=== PATIENT | female | born 1945 | race Caucasian/White ===

== ENCOUNTER 2017-12-25 13:24 | Day surgery (SDC) | payer OTHER, SELFPAY ==
[2017-12-25 13:46] VITALS: BP 145/72; PULSE 71; TEMP 36.1; O2SAT 98; BMI 25.8
[2017-12-25 14:18] VITALS: BMI 25.8
[2017-12-25] MEDS: PROPARACAINE 0.5% OPHTH SOL 2 DROPS EYE-OP (14:20)
[2017-12-25] MEDS: CATARACT EYE COMPOUND (10 DROPS/SYRINGE) 3 DROPS EYE-OP (14:30)
--- NOTE | 2017-12-25 15:12 | PM.PREOP ---
Pre-operative Note Interval Note Pre-op Check: History & Physical Reviewed by Physician
--- NOTE | 2017-12-25 15:26 | SUR.OPER ---
Supine on eye stretcher, head on extension cradle secured with tape. Arms tucked at sides with blanket. Pillow under knees.
[2017-12-25] MEDS: CHONDROIDTIN/SOD HYALURONATE 1.05 ML SYRINGE INTRAOCULA (15:33)
[2017-12-25] MEDS: TRIAMCINOLONE 50 MG/5 ML VIAL INJ (15:34)
[2017-12-25] MEDS: MOXIFLOXACIN OPHTH DROPS 3 ML BOTTLE 2 DROPS INJ (15:34)
[2017-12-25] MEDS: PHENYLEPHRINE/LIDOCAINE 3ML VIAL (OR) EYE-OP (15:34)
[2017-12-25] MEDS: LIDOCAINE JELLY 2% 5 ML 1 APPLIC TOP (15:34)
[2017-12-25] MEDS: BALANCED SALT IRRIG SOLN NO.2 500 ML, EPINEPHrine 1 MG IRR (15:35)
[2017-12-25] MEDS: TETRACAINE 0.5% OPHTH DROPS 15 ML 2 DROPS EYE-LEFT (15:35)
--- NOTE | 2017-12-25 15:40 | P.OP_ITS ---
Operative Date/Time/Diagnoses - Pre-op diagnosis: Cataract Left eye Post-op diagnosis: same Procedure & Clinicians Surgeon: Nhan Massey Anesthesia Type: MAC +/- and Sedation Operative Notes Procedure in detail: Patient brought to the operating suite. Tetracaine drops placed in the left eye. Patient was prepped and draped in sterile manner. Wire lid speculum was placed in the eye. Betadine drops were placed on the eye. This was irrigated. Lidocaine jelly was placed on the eye. A paracentesis port was created with a side-port blade. 0.1 mL 1% preservative free lidocaine was injected into the anterior chamber. The anterior chamber was deepened with viscoelastic. 2.6 mm keratome was used to create a temporal clear corneal incision. Cystotome and Utrata forceps were used to create continuous tear capsulorrhexis. Balanced salt solution was used to hydro dissect the nucleus. The phacoemulsification handpiece was inserted and the nucleus was removed using the stop and chop technique. The irrigation aspiration handpiece was inserted and the remaining cortex was removed. Anterior chamber was deepened with viscoelastic. An Summers ZCB00 intraocular lens with a power of 19.0 was injected into the capsular bag. Irrigation aspiration handpiece was inserted and the remaining viscoelastic was removed. Incision was hydrated with balanced salt solution and found to be leak free with pressure with Weck- Lulu sponges. 0.1 mL Vigamox injected anterior chamber. 0.3 mL Kenalog 10 mg was injected subconjunctivally. Lid speculum was removed. The patient left the operating room in excellent condition. Complications: none Condition: stable Disposition: same day surgery
[2017-12-25 15:49] VITALS: BP 123/71; PULSE 61; RESP 16; TEMP 36.5; O2SAT 100
== END 2017-12-25 15:57 | disposition home or self-care (01) ==
PROVIDERS: Visit Provider Ophthalmology
DX: H25.12 Age-related nuclear cataract, left eye (principal)
CPT/HCPCS: J0171; J2250; J3010; J3301

== ENCOUNTER 2018-01-08 13:16 | Day surgery (SDC) | payer OTHER, SELFPAY ==
[2018-01-08 13:54] VITALS: BP 123/74; PULSE 63; RESP 15; TEMP 36.4; O2SAT 100
[2018-01-08 14:03] VITALS: BMI 25.7
[2018-01-08] MEDS: PROPARACAINE 0.5% OPHTH SOL 2 DROPS EYE-OP (14:08)
[2018-01-08] MEDS: CATARACT EYE COMPOUND (10 DROPS/SYRINGE) 3 DROPS EYE-OP (14:08)
--- NOTE | 2018-01-08 14:55 | PM.PREOP ---
Pre-operative Note Interval Note Pre-op Check: History & Physical Reviewed by Physician
--- NOTE | 2018-01-08 14:56 | P.OP_ITS ---
Operative Date/Time/Diagnoses - Pre-op diagnosis: Cataract Right eye Post-op diagnosis: same Procedure & Clinicians Procedure: Cataract Surgery Same procedure as scheduled: Yes Surgeon: Nhan Massey Anesthesia Type: MAC +/- and Sedation Operative Notes Procedure in detail: Patient brought to the operating suite. Tetracaine drops placed in the right eye. Patient was prepped and draped in sterile manner. Wire lid speculum was placed in the eye. Betadine drops were placed on the eye. This was irrigated. Lidocaine jelly was placed on the eye. A paracentesis port was created with a side-port blade. 0.1 mL 1% preservative free lidocaine was injected into the anterior chamber. The anterior chamber was deepened with viscoelastic. 2.6 mm keratome was used to create a temporal clear corneal incision. Cystotome and Utrata forceps were used to create continuous tear capsulorrhexis. Balanced salt solution was used to hydro dissect the nucleus. The phacoemulsification handpiece was inserted and the nucleus was removed using the stop and chop technique. The irrigation aspiration handpiece was inserted and the remaining cortex was removed. Anterior chamber was deepened with viscoelastic. An Summers ZCB00 intraocular lens with a power of 19.5 was injected into the capsular bag. Irrigation aspiration handpiece was inserted and the remaining viscoelastic was removed. Incision was hydrated with balanced salt solution and found to be leak free with pressure with Weck- Lulu sponges. 0.1 mL Vigamox injected anterior chamber. 0.3 mL Kenalog 10 mg was injected subconjunctivally. Lid speculum was removed. The patient left the operating room in excellent condition. Complications: none Condition: stable Disposition: same day surgery
[2018-01-08] MEDS: TRIAMCINOLONE 50 MG/5 ML VIAL INJ (15:10)
[2018-01-08] MEDS: MOXIFLOXACIN OPHTH DROPS 3 ML BOTTLE 2 DROPS INJ (15:10)
[2018-01-08] MEDS: CHONDROIDTIN/SOD HYALURONATE 1.05 ML SYRINGE INTRAOCULA (15:10)
[2018-01-08] MEDS: BALANCED SALT IRRIG SOLN NO.2 500 ML, EPINEPHrine 1 MG IRR (15:11)
[2018-01-08] MEDS: TETRACAINE 0.5% OPHTH DROPS 15 ML 2 DROPS EYE-RIGHT (15:11)
[2018-01-08] MEDS: PHENYLEPHRINE/LIDOCAINE 3ML VIAL (OR) EYE-OP (15:12)
[2018-01-08] MEDS: LIDOCAINE JELLY 2% 5 ML 1 APPLIC TOP (15:13)
[2018-01-08 15:30] VITALS: BP 118/68; PULSE 62; RESP 16; TEMP 36.6; O2SAT 99
== END 2018-01-08 15:45 | disposition home or self-care (01) ==
PROVIDERS: Visit Provider Ophthalmology
DX: H25.11 Age-related nuclear cataract, right eye (principal)
CPT/HCPCS: J0171; J2250; J3010; J3301

== ENCOUNTER → 2018-12-12 11:40 | Outpatient (CLI) | payer OTHER, SELFPAY ==
--- NOTE | 2018-12-12 | DI.US.S_ITS ---
PROCEDURE: US EXTREMITY NONVASC UPPER LT INDICATIONS: LOCALIZED SWELLING, MASS AND LUMP, TRUNK TECHNIQUE: Real-time scanning was performed of the 2 areas of current clinical concern left flank, with image documentation. COMPARISON: None. FINDINGS: What appeared to be lipomas are present at the left abdomen area of current clinical concern, with the more laterally measuring 1.6 x 3.0 x 5.4 cm and the more medial measuring 2.4 x 2.6 x 4.5 cm. IMPRESSION: Probable lipomas as cause of the palpable abnormalities measuring up to 5.4 cm and 4.5 cm respectively on the left. These areas could be more accurately assessed if clinically desired by MR scanning with contrast but assuming they are chronic and have a palpable physical exam finding of lipoma continued physical exam followup should suffice. Dictated by: Alphonso Beebe M.D. on 12/12/2018 at 13:08 Approved by: Alphonso Beebe M.D. on 12/12/2018 at 13:10
== END ==
PROVIDERS: PCP Family Medicine; Visit Provider Physician Assistant
DX: R22.2 Localized swelling, mass and lump, trunk (principal)
CPT/HCPCS: 76882